=== PATIENT | female | born 1980 | race Caucasian/White ===

== ENCOUNTER 2022-02-01 13:02 | Outpatient (CLI) | payer MEDICARE, SELFPAY ==
--- NOTE | ~2022-02-01 | US_ITS ---
EXAMINATION: US OB /maternal detail DATE: 02/01/2022 14:56 INDICATION: anatomic survey, no care, uncertain dating TECHNIQUE: Real-time ultrasound of the pelvis was performed. COMPARISON: None. FINDINGS: There is a single living fetus in vertex presentation. The placenta is posterior and 10.1 cm from the internal cervical os. heart rate is 147 beats per minute (bpm). cardiac activity and fe rebecca movement are noted. The amniotic fluid index is 9.6 cm which is normal. The following anatomy was identified as normal: 4 chamber heart 3 vessel cord cord insertion kidneys urinary bladder stomach spine diaphragm ventricles cerebellum The following biometric data were obtained: Biparietal diameter (BPD): 8.7 cm; head circumference (HC): 30.7 cm; abdominal circumference (AC): 31 .1 cm; femur length (FL): 6.4 cm. These measurements are concordant. Estimated weight is 2434 g +/- 365 g. As single measurements, these parameters are each equal to the following estimated gestational ages w ith ranges of +/- 2 standard deviations: BPD: 35 weeks 1 days +/- 3 weeks 1 days. HC: 34 weeks 2 days +/- 3 weeks 0 days. AC: 35 weeks 0 days +/- 3 weeks 0 days. FL: 33 weeks 1 days +/- 3 weeks 0 days. estimated gestational age based solely on measurements from this exam is 34 weeks 3 days +/- 2 weeks 3 days. IMPRESSION: 1. Single living fetus in vertex presentation. 2. Estimated weight is 2434 g +/- 365 g. 3. estimated gestational age based solely on measurements from this exam is 34 weeks 3 days +/- 2 weeks 3 days estimated date of delivery of 03/12/2022. Reviewed, dictated and finalized at location B.
[2022-02-01 13:30] VITALS: BP 144/90; PULSE 82
[2022-02-01 13:45] VITALS: BP 155/89; PULSE 88
[2022-02-01 14:55] VITALS: BP 144/90; PULSE 103
[2022-02-01 15:46] VITALS: BP 157/88; PULSE 84
[2022-02-01 16:13] LABS: Basophils Percent Auto 0.3 % (0.2-1.2); Eosinophils Absolute Auto 0.2 K/mm3 (0-0.3); Eosinophils Percent Auto 1.4 % (0-4.4); Hematocrit 31.1 % (37.0-47.0); Hemoglobin 9.2 g/dL (12.0-15.0); Immature Granulocyte Absolute 0.06 K/mm3 (0.00-0.031); Immature Granulocyte Percent A 0.5 % (0-0.5); Lymphocytes Absolute Auto 0.78 K/mm3 (0.9-3.2); Mean Corpuscular HGB Conc 29.6 g/dl (32-36); Mean Corpuscular Hemoglobin 27.7 pg (26-34); Mean Corpuscular Volume 93.7 fl (80-100); Mean Platelet Volume 12.9 fl (7.4-10.4); Monocytes Absolute Auto 0.5 K/mm3 (0.1-0.6); Monocytes Percent Auto 4.1 % (2.6-8.5); Neutrophils Absolute Auto 9.6 K/mm3 (1.3-6.7); Neutrophils Percent Auto 86.7 % (45.5-73.1); Platelet Count Result 128 k/mm3 (150-375); Red Blood Count 3.32 M/mm3 (4.2-5.4); Red Cell Distribution Width 17.1 % (11.5-14.5); White Blood Count 11.1 K/mm3 (4.5-10.0)
[2022-02-01 16:24] LABS: Alanine Aminotransferase 14 U/L (6-35); Alkaline Phosphatase 242 U/L (38-126); Anion Gap 11 mmol/L (8-16); Aspartate Amino Transferase 21 U/L (14-36); Bilirubin,Total 0.5 mg/dL (0.2-1.3); Blood Urea Nitrogen 4 mg/dL (7-17); Carbon Dioxide 20 mmol/L (22-30); Chloride 103 mmol/L (98-107); Estimated Glomerular Filt Rate > 60; Glucose 161 mg/dL (65-110); Glucose 1 Hour PP 50gm Dose 162 mg/dL; Sodium 134 mmol/L (137-145); Uric Acid 3.7 mg/dL (2.5-7.5)
[2022-02-01 16:32] LABS: Hemoglobin A1C 5.3 % (<5.7)
[2022-02-01 16:34] LABS: Hypochromasia 1+ (NORMAL); Platelet Estimate Decreased (Adequate)
[2022-02-01 16:35] LABS: Anisocytosis 2+ (NORMAL)
--- NOTE | 2022-02-01 17:00 | PC.NURSE ---
Called Dr. Chawla regarding test results, blood pressures and EDC. Dr Chawla ordered 24 hour urine, increase in BP medications and follow up 3 hour glucose test. Patient was given 24 hour instructions, and written detailed instructions due to cognitive impairment. Pt told to return tomorrow at 1600 with 24 hour urine.
[2022-02-01 17:09] LABS: Appearance Urine Clear (Clear); Bilirubin Urine Negative (Negative); Blood Urine Negative (Negative); Color Urine Yellow (Yellow); Glucose Urine UA Negative (Negative); Ketones Urine Negative (Negative); Leukocyte Esterase Ur 1+ LEU/UL (NEGATIVE); Nitrate Urine Negative (Negative); Protein Urine Negative (Negative); Urobilinogen Urine 0.2 mg/dL (<2.0)
[2022-02-01 17:13] LABS: RBC Urine 0-2 /hpf (0-2); Squamous Epithelial Cell Urine Few /hpf (Few); WBC Urine 0-3 /hpf (0-3)
[2022-02-01 17:15] LABS: Add Urine Microscopic? YES
[2022-02-01 17:18] LABS: HIV 1/2 Ab P24 Ag Result Negative (Negative)
[2022-02-01 17:32] VITALS: BP 157/88
[2022-02-01 17:40] LABS: Hepatitis B Surface Antigen Negative (Negative); Rubella IgG Antibody < 0.6 IU/ML
[2022-02-01 17:45] LABS: Creatinine Urine 19.3 mg/dL; Total Protein Urine Random 19 mg/dL; Ur Ttl Prot Creatinine Ratio 0.98 mg/mg (0-0.20)
[2022-02-02 05:58] LABS: Rapid Plasma Reagin Non-Reactive (NonReactive)
== END 2022-02-01 17:30 | disposition home or self-care (01) ==
LOC: ANHOBOP 13:08 → ANHOBPP 13:11
PROVIDERS: PCP Internal Medicine; Visit Provider Obstetrics & Gynecology
DX: O13.3 Gestational [pregnancy-induced] hypertension without significant proteinuria, third trimester (principal); Z3A.34 34 weeks gestation of pregnancy; Z51.81 Encounter for therapeutic drug level monitoring; Z79.899 Other long term (current) drug therapy; Z11.4 Encounter for screening for human immunodeficiency virus [HIV]
CPT/HCPCS: 36415; 59025; 76805; 80053; 81001; 82570; 82947; 83036; 84156; 84550; 85025; 86592; 86703; 86762; 86850; 86900; 86901; 87086; 87340; 99199; G0432

== ENCOUNTER 2022-02-02 16:13 | Outpatient (CLI) | payer MEDICARE, SELFPAY ==
[2022-02-02 16:26] VITALS: BMI 33.2
[2022-02-02 16:45] LABS: Total Volume 24 Hour Urine 1900 ml
[2022-02-02 16:48] LABS: Collection Time Urine 24 HOURS; Total Volume 24 Hour Urine 1900 ml
[2022-02-02 16:49] LABS: Patient Weight 170 Lbs
[2022-02-02 17:02] LABS: Total Protein Urine 24 Hr 361 mg/24hr (28-141); Total Protein Urine Random 19 mg/dL
[2022-02-02 17:04] LABS: Creatinine Clearance Urine 77.6 ml/min (75-125); Creatinine Urine 35.4 mg/dL
== END 2022-02-02 16:14 | disposition home or self-care (01) ==
LOC: ANHOBOP 16:21
PROVIDERS: PCP Internal Medicine; Visit Provider Obstetrics & Gynecology
DX: O13.3 Gestational [pregnancy-induced] hypertension without significant proteinuria, third trimester (principal); Z3A.34 34 weeks gestation of pregnancy
CPT/HCPCS: 81050; 82575; 84156

== ENCOUNTER 2022-02-08 07:39 | Outpatient (CLI) | payer MEDICARE, SELFPAY ==
[2022-02-08 08:36] LABS: Glucose Fasting Gestational 87 mg/dL (>/=95)
[2022-02-08 10:09] LABS: Glucose 1 Hour Gest 198 mg/dL (>/=180)
[2022-02-08 11:19] LABS: Glucose 2 Hour Gest 165 mg/dL (>/= 155)
[2022-02-08 12:00] LABS: Glucose 3 Hour Gest 93 mg/dL (>/=140)
== END 2022-02-08 07:40 | disposition home or self-care (01) ==
PROVIDERS: PCP Internal Medicine; Visit Provider Obstetrics & Gynecology
DX: O99.810 Abnormal glucose complicating pregnancy (principal); Z3A.00 Weeks of gestation of pregnancy not specified
CPT/HCPCS: 36415; 59025; 76815; 76819; 80053; 82951; 82952; 84550; 85027; 85055; 85384; 85610; 85730

== ENCOUNTER 2022-02-15 13:42 | Outpatient (RCR) | payer MEDICARE, MEDICAID, SELFPAY ==
[2022-02-08 15:19] LABS: Hemoglobin 9.4 g/dL (12.0-15.0); Mean Corpuscular HGB Conc 29.4 g/dl (32-36); Mean Corpuscular Hemoglobin 27.6 pg (26-34); Mean Corpuscular Volume 94.1 fl (80-100); Platelet Count Result 129 k/mm3 (150-375); Red Cell Distribution Width 18.2 % (11.5-14.5); White Blood Count 9.7 K/mm3 (4.5-10.0)
[2022-02-08 15:26] LABS: Alanine Aminotransferase 10 U/L (6-35); Albumin Level 3.8 g/dL (3.5-5.1); Alkaline Phosphatase 210 U/L (38-126); Anion Gap 10 mmol/L (8-16); Aspartate Amino Transferase 20 U/L (14-36); Bilirubin,Total 0.5 mg/dL (0.2-1.3); Blood Urea Nitrogen 6 mg/dL (7-17); Calcium 8.8 mg/dL (8.4-10.2); Carbon Dioxide 20 mmol/L (22-30); Chloride 103 mmol/L (98-107); Estimated Glomerular Filt Rate > 60; Glucose 82 mg/dL (65-110); INR 0.9; Potassium 4.1 mmol/L (3.4-5.0); Prothrombin Time 11.8 Seconds (11.1-14.7); Sodium 133 mmol/L (137-145); Uric Acid 4.4 mg/dL (2.5-7.5)
[2022-02-08 15:27] LABS: Fibrinogen 656 mg/dl (215-510); Partial Thromboplastin Time 27.3 SECONDS (22.3-36.8)
--- NOTE | 2022-02-08 16:00 | PC.NURSE ---
Dr Chawla updated on labs, tracing reviewed per MD in office. Order to cont to monitor and send patient for a BPP.
[2022-02-08 16:51] VITALS: BP 136/82; PULSE 77
--- NOTE | 2022-02-11 12:26 | PC.NURSE ---
Dr Chawla notified of variable decel that was noted. Order for BPP and QUE.
--- NOTE | 2022-02-11 14:03 | PCCCNOTE ---
Met with pt. and KISHA Rodney at bedside. Pt?s step mother Elizabeth also joined the room a few minutes after starting. Pt. and FOB both suffer from developmental disabilities/or delays. Spoke with pt. regarding support at home, supplies, and any concerns she may have. Pt. reports she and FOB live together independently in [place] currently. Pt. states Elizabeth is very supportive and lives close, in a neighboring city. Pt. states she found out she was just a few weeks ago and states proposed due date is 03/12/2022. Pt. reports she thought she was just gaining weight. Since finding out , pt. has been attending twice a week appointments with her OBGYN, and has since been compliant with recommendations. This will be pt?s first baby. Pt. plans on staying with Elizabeth once baby is here, and have her support in case needed. Elizabeth confirms she will be available for pt. and Rashaun. Pt. reports has everything needed for new baby, except a car seat. Pt. inquired what type of car seat is required due to when they researched it, it states ?must meet hospital policy.? Instructed pt. to speak with the medical staff regarding car seat guidelines and encouraged pt. to not rely on the hospital to provide a car seat at delivery. Pt. and Elizabeth confirm financial ability to purchase a car seat. All in the room state understanding. Pt. denies drug use and DCFS history. Pt. answered questions appropriately for this being her first experience becoming a new mom. resources were provided to pt. and pt. seemed very interested in the childbirth and parenting classes that were listed.
[2022-02-11 14:48] VITALS: BP 152/80; PULSE 93
--- NOTE | ~2022-02-15 | US_ITS ---
EXAMINATION: US OB limited w BPP DATE: 02/11/2022 14:26 INDICATION: Variable cardiac decelerations. Assess biophysical profile and amniotic fluid index . TECHNIQUE: Real-time pelvic ultrasound was performed. The interpreting radiologist was not present fo r the study. COMPARISON: 02/08/2022 FINDINGS: There is a single living fetus in vertex presentation. The placenta is posterior. heart rate i s 138 beats per minute (bpm). Amniotic fluid index is 13.0 cm which is normal (5th%-95%: 7.9-24.9 cm at 35 weeks estimated gestational age) Biophysical profile performed by the technologist: breathing (30 sec sustained breathing in 30 minutes): 2 out of 2 movement (3 gross body movements in 30 minutes): 2 out of 2 tone (one episode of wswpwga-asablvbyb-idjkyck limb movement): 2 out of 2 Amniotic fluid pocket (2 cm): 2 out of 2 Total score: 8 out of 8 IMPRESSION: 1. Single living fetus in vertex presentation with heart rate of 138 bpm. 2. Biophysical profile 8 out of 8. 3. Normal amniotic fluid index of 13.0 cm. Reviewed, dictated and finalized at location A.
--- NOTE | ~2022-02-15 | US_ITS ---
EXAMINATION: US OB limited w BPP DATE: 02/08/2022 17:05 INDICATION: Evaluate BPP with QUE TECHNIQUE: Real-time ultrasound of the pelvis was performed. COMPARISON: 02/01/2022 FINDINGS: There is a single living fetus in vertex presentation. The placenta is posterior. heart rate i s 135 beats per minute (bpm). The amniotic fluid index is 13.6 cm, which is normal (5th to 95th perce ntile range is 7.9 to 24.9 cm). Biophysical profile performed by the technologist: breathing (30 sec sustained breathing in 30 minutes): 2 out of 2 movement (3 gross body movements in 30 minutes: 2 out of 2 tone (one episode of honymfk-wtdyavzpj-xvjgfvf limb movement): 2 out of 2 Amniotic fluid pocket (2 cm): 2 out of 2 Total score: 8 out of 8 IMPRESSION: 1. Single living fetus in vertex presentation. 2. Normal QUE. 3. Biophysical profile 8 out of 8. 4. Estimated gestational age by this ultrasound 35 weeks 3 days. CAESAR by this ultrasound 03/12/2022. Reviewed, dictated and finalized at location K. IMPRESSION: 1. Single living fetus in vertex presentation. 2. Normal QUE. 3. Biophysical profile 8 out of 8. 4. Estimated gestational age by this ultrasound 35 weeks 3 days. CAESAR by this u ltrasound 03/12/2022.
--- NOTE | ~2022-02-15 | US_ITS ---
EXAMINATION: US OB limited w BPP DATE: 02/15/2022 15:37 INDICATION: PIH, QUE, BPP TECHNIQUE: Real-time ultrasound of the pelvis was performed. COMPARISON: 02/11/2022. FINDINGS: There is a single living fetus in vertex presentation, longitudinal lie. The placenta is posterior. heart rate is 143 beats per minute (bpm). The amniotic fluid index is 14.0 cm (5th to 95th perc entile is 7.7 to 24.9 cm). Biophysical profile performed by the technologist: breathing (30 sec sustained breathing in 30 minutes): 2 out of 2 movement (3 gross body movements in 30 minutes: 2 out of 2 tone (one episode of sadxuuz-igmdlgwjl-wzflcie limb movement): 2 out of 2 Amniotic fluid pocket (2 cm): 2 out of 2 Total score: 8 out of 8 IMPRESSION: 1. Single living fetus in vertex presentation with heart rate of 143 bpm.] 2. QUE 14 cm, within normal range. 3. Biophysical profile 8 out of 8. Reviewed, dictated and finalized at location K.
[2022-02-15 14:22] LABS: Basophils Percent Auto 0.3 % (0.2-1.2); Eosinophils Absolute Auto 0.1 K/mm3 (0-0.3); Eosinophils Percent Auto 1.2 % (0-4.4); Hematocrit 28.9 % (37.0-47.0); Hemoglobin 8.9 g/dL (12.0-15.0); Immature Granulocyte Absolute 0.03 K/mm3 (0.00-0.031); Immature Granulocyte Percent A 0.4 % (0-0.5); Immature Platelet Fraction Pct 26.2 % (0.9-11.2); Lymphocytes Absolute Auto 0.73 K/mm3 (0.9-3.2); Lymphocytes Percent Auto 9.8 % (18.3-44.2); Mean Corpuscular HGB Conc 30.8 g/dl (32-36); Mean Corpuscular Hemoglobin 28.8 pg (26-34); Mean Corpuscular Volume 93.5 fl (80-100); Monocytes Absolute Auto 0.4 K/mm3 (0.1-0.6); Monocytes Percent Auto 5.5 % (2.6-8.5); Neutrophils Absolute Auto 6.2 K/mm3 (1.3-6.7); Neutrophils Percent Auto 82.8 % (45.5-73.1); Platelet Count Result 110 k/mm3 (150-375); Red Blood Count 3.09 M/mm3 (4.2-5.4); Red Cell Distribution Width 19.5 % (11.5-14.5); White Blood Count 7.4 K/mm3 (4.5-10.0)
[2022-02-15 14:31] LABS: Alanine Aminotransferase 10 U/L (6-35); Albumin Level 3.6 g/dL (3.5-5.1); Alkaline Phosphatase 197 U/L (38-126); Anion Gap 8 mmol/L (8-16); Aspartate Amino Transferase 18 U/L (14-36); Bilirubin,Total 0.4 mg/dL (0.2-1.3); Blood Urea Nitrogen 9 mg/dL (7-17); Calcium 9.3 mg/dL (8.4-10.2); Carbon Dioxide 19 mmol/L (22-30); Chloride 105 mmol/L (98-107); Estimated Glomerular Filt Rate > 60; Glucose 83 mg/dL (65-110); Potassium 4.2 mmol/L (3.4-5.0); Sodium 132 mmol/L (137-145); Uric Acid 4.9 mg/dL (2.5-7.5)
[2022-02-15 14:59] LABS: Creatinine Urine 199.1 mg/dL; Total Protein Urine Random 28 mg/dL; Ur Ttl Prot Creatinine Ratio 0.14 mg/mg (0-0.20)
[2022-02-15 15:00] LABS: Appearance Urine Cloudy (Clear); Bilirubin Urine Negative (Negative); Blood Urine Trace-lysed (Negative); Color Urine Yellow (Yellow); Glucose Urine UA Negative (Negative); Ketones Urine Negative (Negative); Leukocyte Esterase Ur 3+ LEU/UL (NEGATIVE); Nitrate Urine Negative (Negative); Protein Urine 1+ mg/dL (Negative); Specific Grav Ur 1.025 (1.001-1.035); Urobilinogen Urine 0.2 mg/dL (<2.0); pH Urine 6.5 (5.0-9.0)
[2022-02-15 15:17] LABS: Bacteria Urine Trace /hpf; Mucus Urine Few /lpf; Squamous Epithelial Cell Urine Many /hpf (Few); WBC Urine >75 /hpf (0-3)
[2022-02-15 15:23] LABS: Add Urine Microscopic? YES
--- NOTE | 2022-02-15 15:53 | PC.NURSE ---
Called Dr. Chawla cell phone for updated with Labs and results. No answer at this time.
--- NOTE | 2022-02-15 16:07 | PC.NURSE ---
Tried Dr. Chawla cell phone for updated with Labs and results. No answer at this time.
--- NOTE | 2022-02-15 16:12 | PC.NURSE ---
Called Dr. Chawla office phone. Left message with front office to call back.
--- NOTE | 2022-02-15 16:34 | PC.NURSE ---
Called Dr. Archuleta office number again and asked for her to be pulled from her room. Pt needing to catch the bus and is afraid she will miss it. Dr. Chawla to look at results and call back.
--- NOTE | 2022-02-15 16:36 | PC.NURSE ---
Dr. Chawla returned call. Lab results, results and tracing reviewed with provider. states pt has MFM appointment in the morning. Discharge pt with preeclampsia and labor handouts.
[2022-02-15 16:50] VITALS: BP 138/83; PULSE 85
== END 2022-05-09 23:59 | disposition home or self-care (01) ==
LOC: ANHOBOP 13:42
PROVIDERS: PCP Internal Medicine; Visit Provider Obstetrics & Gynecology
DX: O14.93 Unspecified pre-eclampsia, third trimester (principal); O09.513 Supervision of elderly primigravida, third trimester; O16.3 Unspecified maternal hypertension, third trimester; O24.419 Gestational diabetes mellitus in pregnancy, unspecified control; O12.13 Gestational proteinuria, third trimester; Z3A.35 35 weeks gestation of pregnancy
CPT/HCPCS: 36415; 59025; 76815; 76819; 80053; 81001; 82570; 84156; 84550; 85025; 85027; 85055; 85384; 85610; 85730; 87086; 87088